=== PATIENT | female | born 1975 | race American Indian/Alaskan Native ===

== ENCOUNTER 2017-02-04 11:30 | Emergency (ER) | payer MEDICAID ==
[2017-02-04 11:39] VITALS: BP 145/94
--- NOTE | 2017-02-04 12:31 | XRay Report ---
RIGHT WRIST, 3 VIEWS: History: wrist pain, injury. Routine views demonstrate the carpal bones to be well mineralized with well preserved bony mineralization and interosseous joint spaces. The carpal and adjacent articular bones have normal contours. The surrounding soft tissues are unremarkable. IMPRESSION: Unremarkable right wrist.
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
--- NOTE | 2017-02-04 13:35 | XRay Report ---
RIGHT HAND, 3 views: History: Right hand pain. The bony architecture is intact. Bony alignment is normal. No soft tissue abnormalities are seen. The joint spaces appear preserved. IMPRESSION: Right hand within normal limits.
== END 2017-02-04 14:13 | disposition home or self-care (01) ==
LOC: ED 11:30
DX: S60.221A Contusion of right hand, initial encounter (principal); S69.91XA Unspecified injury of right wrist, hand and finger(s), initial encounter; I10 Essential (primary) hypertension; J45.909 Unspecified asthma, uncomplicated; X58.XXXA Exposure to other specified factors, initial encounter; Y93.9 Activity, unspecified; Y92.9 Unspecified place or not applicable; Y99.9 Unspecified external cause status